=== PATIENT | male | born 1955 ===

== ENCOUNTER 2017-06-28 15:25 | Emergency (ER) | payer SELFPAY ==
[2017-06-28 15:32] VITALS: BP 123/66; PULSE 76; RESP 17; TEMP 96.5; O2SAT 98
--- NOTE | 2017-06-28 15:47 | ED PDOC ---
HPI: Chest Pain Time Seen by Provider: 06/28/17 15:30 Chief Complaint (Nursing): Chest Pain Chief Complaint (Provider): chest pain History Per: Patient (62 y/o male here with right sided chest pain x 3 days worse with deep breathing and coughing. Patient states pain worse with moving arm. 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 Denies any strenuous activity/heavy lifting.) Past Medical History Reviewed: Historical Data, Nursing Documentation, Vital Signs Vital Signs: Last Vital Signs Temp 96.5 F L 06/28/17 15:29 Pulse 76 06/28/17 15:29 Resp 17 06/28/17 15:29 BP 123/66 06/28/17 15:29 Pulse Ox 98 06/28/17 19:09 - Medical History PMH: Diabetes - Family History Family History: States: No Known Family Hx - Immunization History Hx Tetanus Toxoid Vaccination: No Hx Influenza Vaccination: No Hx Pneumococcal Vaccination: No - Home Medications Home Medications: Ambulatory Orders Medication Instructions Recorded Famotidine [Pepcid] 20 mg PO BID #30 tab 11/28/14 Ondansetron ODT [Zofran ODT] 4 mg PO Q8 PRN #12 odt 11/28/14 Penicillin V Potassium 500 mg PO Q6 #40 tablet 03/20/16 Naproxen 1 tab PO Q12 PRN #10 tab 06/28/17 - Allergies Allergies/Adverse Reactions: Allergies Allergy/AdvReac Type Severity Reaction Status Date / Time No Known Allergies Allergy Verified 11/28/14 02:56 Review of Systems ROS Statement: Except As Marked, All Systems Reviewed And Found Negative Cardiovascular: Positive for: Chest Pain Physical Exam - Reviewed Nursing Documentation Reviewed: Yes Vital Signs Reviewed: Yes - Physical Exam Appears: Positive for: Well, Non-toxic, No Acute Distress Head Exam: Positive for: ATRAUMATIC, NORMAL INSPECTION, NORMOCEPHALIC Skin: Positive for: Normal Color, Warm, DRY Eye Exam: Positive for: EOMI, Normal appearance, PERRL ENT: Positive for: Normal ENT Inspection Neck: Positive for: Normal, Painless ROM Cardiovascular/Chest: Positive for: Regular Rate, Rhythm. Negative for: Chest Non Tender (right side anterior chest wall tenderness.) Respiratory: Positive for: CNT, Normal Breath Sounds Gastrointestinal/Abdominal: Positive for: Normal Exam, Bowel Sounds, Soft Back: Positive for: Normal Inspection Extremity: Positive for: Normal ROM Neurologic/Psych: Positive for: Alert, Oriented - Laboratory Results Result Diagrams: 06/28/17 15:58 06/28/17 18:20 - ECG O2 Sat by Pulse Oximetry: 98 - Progress ED Course And Treament: toradol 15 mg iv x 1 dose ekg: nsr 65bpm no ectopy no acute changes. TROPONIN X 2 IN ED WNL K ELEVATED INITIALLY 5.3 KAYEXELATE 30 GM PO REPEAT 4.7 D/W DR. DIOP. CXR: NAD Disposition - Clinical Impression Clinical Impression: Chest wall pain - Patient ED Disposition Is Patient to be Admitted: No - Disposition Disposition: Routine/Home Disposition Time: 19:08 Condition: FAIR Prescriptions: Naproxen 1 tab PO Q12 PRN #10 tab PRN Reason: Pain, Moderate (4-7) Instructions: Chest Wall Pain (ED) Forms: [facility] (Maori)
[2017-06-28 16:12] LABS: BASO # 0.1 K/uL (0.0-0.2); BASO % 1.2 % (0.0-2.0); EOS # 0.1 K/uL (0.0-0.7); EOS % 1.1 % (0.0-4.0); HEMATOCRIT 35.1 % (35.0-51.0); LYMPH # 2.1 K/uL (1.0-4.3); LYMPH % 25.3 % (20.0-40.0); MEAN CELL VOLUME 87.3 fl (80.0-94.0); MEAN CORPUSCULAR HEMOGLOBIN 29.4 pg (27.0-31.0); MEAN CORPUSCULAR HGB CONC 33.7 g/dL (33.0-37.0); MEAN PLATELET VOLUME 7.6 fl (7.2-11.7); MONO # 0.5 K/uL (0.0-0.8); MONO % 6.3 % (0.0-10.0); NEUT # 5.6 K/uL (1.8-7.0); NEUT % 66.1 % (50.0-75.0); RED CELL DISTRIBUTION WIDTH 12.6 % (11.5-14.5); WHITE BLOOD COUNT 8.4 K/uL (4.8-10.8)
[2017-06-28 16:19] LABS: ALB/GLOB RATIO 1.4 (1.0-2.1); ALKALINE PHOSPHATASE 58 U/L (38-126); ALT/SGPT 30 U/L (21-72); AST/SGOT 21 U/L (17-59); BILIRUBIN,TOTAL 0.3 mg/dl (0.2-1.3); BLOOD UREA NITROGEN 25 mg/dl (9-20); CALCIUM 9.3 mg/dL (8.4-10.2); CARBON DIOXIDE 27 mmol/L (22-30); CHLORIDE 101 mmol/L (98-107); GFR AFRICAN-AMERICAN > 60; GLUCOSE,RANDOM 267 mg/dL (75-110); POTASSIUM 5.3 MMOL/L (3.6-5.0); SODIUM 137 mmol/l (132-148); TOTAL PROTEIN 7.5 G/DL (6.3-8.2)
[2017-06-28] MEDS ORDERED: Sod Polystyrene Sulf 15 gm/60 ml Susp PO STA (16:47)
[2017-06-28] MEDS ORDERED: Sodium Chloride 0.9% 1,000 ML IV STA (16:48)
[2017-06-28] MEDS ORDERED: Sod Polystyrene Sulf 15 gm/60 ml Susp ONE (16:56)
--- NOTE | 2017-06-28 17:19 | RAD ---
HISTORY: cp COMPARISON: Chest radiographs 11/28/2014. TECHNIQUE: Chest PA and lateral FINDINGS: LUNGS: No alveolar infiltrates appreciated bilaterally. Trace reticular markings are questioned at the left base laterally. PLEURA: No significant pleural effusion identified. No pneumothorax apparent. CARDIOVASCULAR: Normal. OSSEOUS STRUCTURES: No significant abnormalities. VISUALIZED UPPER ABDOMEN: Normal. OTHER FINDINGS: None. IMPRESSION: Nonspecific trace reticular markings are questioned the left base laterally with no additional interval findings throughout. No acute cardiovascular disease appreciable.
[2017-06-28 18:35] LABS: POTASSIUM 4.7 MMOL/L (3.6-5.0)
--- NOTE | 2017-06-29 17:44 | CARD ---
APPROVED REPORT EKG Measurement Heart [id number] CA [id number] <Conclusion> Normal sinus rhythm Normal ECG
== END 2017-06-28 19:20 | disposition home or self-care (01) ==
LOC: H.ER 15:25
DX: R07.89 Other chest pain (principal); E11.9 Type 2 diabetes mellitus without complications
CPT/HCPCS: 71020; 80053; 84132; 84484; 85025; 85378; 93005; 96374; 99283; J1885; J7040

== ENCOUNTER 2017-09-02 08:28 | Emergency (ER) | payer SELFPAY ==
[2017-09-02 08:48] VITALS: BP 149/70; PULSE 65; RESP 18; TEMP 98.1; O2SAT 100
[2017-09-02] MEDS ORDERED: Albuterol-Ipratrop 3 mg / 0.5 (3 ml) UD INH STA (09:24)
[2017-09-02 09:37] LABS: BASO % 0.8 % (0.0-2.0); EOS # 0.1 K/uL (0.0-0.7); EOS % 1.9 % (0.0-4.0); HEMOGLOBIN 13.7 g/dL (12.0-18.0); LYMPH % 34.4 % (20.0-40.0); MEAN CORPUSCULAR HEMOGLOBIN 29.3 pg (27.0-31.0); MEAN CORPUSCULAR HGB CONC 33.6 g/dL (33.0-37.0); MEAN PLATELET VOLUME 7.9 fl (7.2-11.7); MONO # 0.6 K/uL (0.0-0.8); MONO % 10.9 % (0.0-10.0); NRBC % 0.3 % (0.0-0.0); RBC 4.67 Mil/uL (4.40-5.90); RED CELL DISTRIBUTION WIDTH 12.7 % (11.5-14.5); WHITE BLOOD COUNT 5.8 K/uL (4.8-10.8)
[2017-09-02] MEDS ORDERED: Albuterol-Ipratrop 3 mg / 0.5 (3 ml) UD ONE (09:40)
--- NOTE | 2017-09-02 09:57 | ED PDOC ---
HPI: General Adult Time Seen by Provider: 09/02/17 09:08 Chief Complaint (Nursing): Flu-like Symptoms Chief Complaint (Provider): Flu-like Symptoms History Per: Patient History/Exam Limitations: no limitations Onset/Duration Of Symptoms: Days (x 2) Additional Complaint(s): Choco is a 62 year old male who presents to the emergency department sore throat, coughing and bilateral ear pain for 2 days. No chest pain or shortness of breath. PMD: Provider TBD Past Medical History Reviewed: Historical Data, Nursing Documentation, Vital Signs Vital Signs: Last Vital Signs Temp 98.1 F 09/02/17 08:47 Pulse 65 09/02/17 08:47 Resp 18 09/02/17 08:47 BP 149/70 09/02/17 08:47 Pulse Ox 100 09/02/17 18:12 - Medical History PMH: Diabetes - Surgical History Other surgeries: Right Elbow Surgery - Family History Family History: States: Unknown Family Hx - Social History Current smoker - smoking cessation education provided: No Alcohol: None Drugs: Denies - Immunization History Hx Tetanus Toxoid Vaccination: No Hx Influenza Vaccination: No Hx Pneumococcal Vaccination: No - Home Medications Home Medications: Ambulatory Orders Medication Instructions Recorded Famotidine [Pepcid] 20 mg PO BID #30 tab 11/28/14 Ondansetron ODT [Zofran ODT] 4 mg PO Q8 PRN #12 odt 11/28/14 Penicillin V Potassium 500 mg PO Q6 #40 tablet 03/20/16 Naproxen 1 tab PO Q12 PRN #10 tab 06/28/17 Albuterol HFA [Ventolin HFA 90 2 puff IH [id number] PRN #1 bottle 09/02/17 mcg/actuation (8 g)] Oseltamivir Phosphate [Tamiflu] 75 mg PO BID #9 capsule 09/02/17 - Allergies Allergies/Adverse Reactions: Allergies Allergy/AdvReac Type Severity Reaction Status Date / Time No Known Allergies Allergy Verified 11/28/14 02:56 Review of Systems ROS Statement: Except As Marked, All Systems Reviewed And Found Negative ENT: Positive for: Ear Pain (Bilateral), Throat Pain Cardiovascular: Negative for: Chest Pain Respiratory: Positive for: Cough. Negative for: Shortness of Breath Physical Exam - Reviewed Nursing Documentation Reviewed: Yes Vital Signs Reviewed: Yes - Physical Exam Appears: Positive for: Non-toxic Head Exam: Positive for: NORMAL INSPECTION Skin: Positive for: Normal Color Eye Exam: Positive for: Normal appearance ENT: Positive for: TM Is/Are (Clear bilaterally). Negative for: Pharyngeal Erythema, Tonsillar Exudate Neck: Positive for: Normal Cardiovascular/Chest: Positive for: Regular Rate, Rhythm Respiratory: Positive for: Normal Breath Sounds. Negative for: Respiratory Distress Extremity: Positive for: Normal ROM Neurologic/Psych: Positive for: Alert, Oriented - Laboratory Results Result Diagrams: 09/02/17 09:00 09/02/17 09:00 - ECG Interpretation Of ECG: NSR @ 67, no ST-T changes. O2 Sat by Pulse Oximetry: 100 (RA) Pulse Ox Interpretation: Normal Medical Decision Making Medical Decision Making: Time: 09:23 Plan: - EKG - CMP - CBC - Chest X-Ray - Duoneb 3 mg/05. mg (3 ml) UD - Peak Flow Pre/Post Treatment - Influenza A B Stat - Rapid Strep Group A Antigen Time: 10:04 Influenza A B Stat - Tested (+) for Influenza b Accession No. : [id number] Patient Name / ID : MURPHY HARDWICK / [id number] Exam Date : 09/02/2017 09:33:17 ( Approved ) Study Comment : Sex / Age : M / 62Y Creator : Claudy Chacon MD Dictator : Claudy Chacon MD Engraver Automatic : Shaper Setter : Claudy Chacon MD Approver2 : Report Date : 09/02/2017 11:31:35 My Comment : HISTORY: Cough COMPARISON: Chest radiographs 08/25/2017. TECHNIQUE: Chest PA and lateral FINDINGS: LUNGS: No active pulmonary disease. Limited is fibrotic change in left base once again laterally. PLEURA: No significant pleural effusion identified. No pneumothorax apparent. CARDIOVASCULAR: Normal. OSSEOUS STRUCTURES: No significant abnormalities. VISUALIZED UPPER ABDOMEN: Normal. OTHER FINDINGS: None. IMPRESSION: No interval acute cardiopulmonary disease appreciated. Scribe Attestation: Documented by Rian Copeland, acting as a scribe for Shanta Emanuel MD Provider Scribe Attestation: All medical record entries made by the Scribe were at my direction and personally dictated by me. I have reviewed the chart and agree that the record accurately reflects my personal performance of the history, physical exam, medical decision making, and the department course for this patient. I have also personally directed, reviewed, and agree with the discharge instructions and disposition. Disposition - Clinical Impression Clinical Impression: Influenza - Disposition Referrals: [facility] [Outside] Disposition: Routine/Home Disposition Time: 11:50 Condition: STABLE Prescriptions: Albuterol HFA [Ventolin HFA 90 mcg/actuation (8 g)] 2 puff IH [id number] PRN #1 bottle PRN Reason: Shortness Of Breath Oseltamivir Phosphate [Tamiflu] 75 mg PO BID #9 capsule Instructions: Oseltamivir (By mouth), Influenza (ED) Forms: [employer] (Martiniquais) Print Language: ESTONIAN
[2017-09-02 10:01] LABS: ALB/GLOB RATIO 1.3 (1.0-2.1); ALBUMIN 4.6 g/dL (3.5-5.0); ALT/SGPT 29 U/L (21-72); AST/SGOT 22 U/L (17-59); BLOOD UREA NITROGEN 21 mg/dl (9-20); CALCIUM 9.6 mg/dL (8.4-10.2); GFR AFRICAN-AMERICAN > 60; GFR NON-AFRICAN AMERICAN > 60
--- NOTE | 2017-09-02 11:33 | RAD ---
HISTORY: Cough COMPARISON: Chest radiographs 08/25/2017. TECHNIQUE: Chest PA and lateral FINDINGS: LUNGS: No active pulmonary disease. Limited is fibrotic change in left base once again laterally. PLEURA: No significant pleural effusion identified. No pneumothorax apparent. CARDIOVASCULAR: Normal. OSSEOUS STRUCTURES: No significant abnormalities. VISUALIZED UPPER ABDOMEN: Normal. OTHER FINDINGS: None. IMPRESSION: No interval acute cardiopulmonary disease appreciated.
--- NOTE | 2017-09-02 17:14 | CARD ---
APPROVED REPORT EKG Measurement Heart [id number] KS 138P54 [id number] <Conclusion> Normal sinus rhythm Normal ECG
== END 2017-09-02 12:15 | disposition home or self-care (01) ==
LOC: H.ER 08:28
DX: J11.1 Influenza due to unidentified influenza virus with other respiratory manifestations (principal); E11.9 Type 2 diabetes mellitus without complications

== ENCOUNTER 2018-07-29 20:33 | Emergency (ER) | payer SELFPAY ==
--- NOTE | 2018-07-29 22:53 | ED PDOC ---
HPI: Dental Pain/Injury Time Seen by Provider: 07/29/18 22:07 Chief Complaint (Nursing): Dental Pain Chief Complaint (Provider): Right ear and jaw pain x 1 week History Per: Patient History/Exam Limitations: no limitations Onset/Duration Of Symptoms: Days Current Symptoms Are (Timing): Still Present Additional Complaint(s): 63 yo male with history of DM presents for evaluation of continued left jaw and ear pain. Pt states he was seen on 07/24 by dentist and dental XR completed. Pt was told it was not due to dental issue. Pt states despite taking motrin and penicillin the pain continues. Pt states today he felt drainage from nose drip into throat and coughed it out. Pt denies fever/chills. No chest pain, no SOB. Past Medical History Reviewed: Historical Data, Nursing Documentation, Vital Signs Vital Signs: Last Vital Signs Temp 97.5 F L 07/29/18 21:58 Pulse 60 07/29/18 21:58 Resp 16 07/29/18 21:58 BP 176/75 H 07/29/18 21:58 Pulse Ox 97 07/29/18 21:58 - Medical History PMH: Diabetes, HTN - Family History Family History: States: Unknown Family Hx - Immunization History Hx Tetanus Toxoid Vaccination: No Hx Influenza Vaccination: No Hx Pneumococcal Vaccination: No - Home Medications Home Medications: Ambulatory Orders Medication Instructions Recorded Famotidine [Pepcid] 20 mg PO BID #30 tab 11/28/14 Ondansetron ODT [Zofran ODT] 4 mg PO Q8 PRN #12 odt 11/28/14 Penicillin V Potassium 500 mg PO Q6 #40 tablet 03/20/16 Naproxen 1 tab PO Q12 PRN #10 tab 06/28/17 Albuterol HFA [Ventolin HFA 90 2 puff IH [id number] PRN #1 bottle 09/02/17 mcg/actuation (8 g)] Oseltamivir Phosphate [Tamiflu] 75 mg PO BID #9 capsule 09/02/17 Amoxicillin/Clavulanate [Augmentin 1 tab PO BID #20 tab 07/29/18 875 MG-125 MG] Prednisone 50 mg PO DAILY #3 tablet 07/29/18 traMADol [Ultram] 50 mg PO Q6H PRN #10 tab 07/29/18 - Allergies Allergies/Adverse Reactions: Allergies Allergy/AdvReac Type Severity Reaction Status Date / Time No Known Allergies Allergy Verified 07/29/18 21:57 Review of Systems ROS Statement: Except As Marked, All Systems Reviewed And Found Negative Constitutional: Negative for: Fever, Chills ENT: Positive for: Ear Pain Cardiovascular: Negative for: Chest Pain, Palpitations Respiratory: Negative for: Cough, Shortness of Breath Gastrointestinal: Negative for: Nausea, Vomiting, Abdominal Pain Musculoskeletal: Negative for: Neck Pain, Shoulder Pain Physical Exam - Reviewed Nursing Documentation Reviewed: Yes Vital Signs Reviewed: Yes - Physical Exam Appears: Positive for: Well, Non-toxic, No Acute Distress Head Exam: Positive for: ATRAUMATIC, NORMAL INSPECTION, NORMOCEPHALIC Skin: Positive for: Normal Color, Warm, DRY Eye Exam: Positive for: Normal appearance ENT: Positive for: Normal ENT Inspection, Pharynx Is, TM Is/Are, Other ((+) tenderness of the right maxillary sinus ) Neck: Positive for: Normal, Painless ROM Cardiovascular/Chest: Positive for: Regular Rate, Rhythm Respiratory: Positive for: Normal Breath Sounds. Negative for: Accessory Muscle Use, Respiratory Distress Back: Positive for: Normal Inspection Extremity: Positive for: Normal ROM Neurologic/Psych: Positive for: Alert, Oriented, Gait. Negative for: Aphasia, Facial Droop - ECG O2 Sat by Pulse Oximetry: 97 Pulse Ox Interpretation: Normal Disposition - Clinical Impression Clinical Impression: Sinusitis - Patient ED Disposition Is Patient to be Admitted: No Counseled Patient/Family Regarding: Diagnosis, Need For Followup, Rx Given - Disposition Referrals: [facility] [Outside] Disposition: Routine/Home Disposition Time: 23:11 Condition: GOOD Prescriptions: Amoxicillin/Clavulanate [Augmentin 875 MG-125 MG] 1 tab PO BID #20 tab Prednisone 50 mg PO DAILY #3 tablet traMADol [Ultram] 50 mg PO Q6H PRN #10 tab PRN Reason: Pain Instructions: Sinusitis in Adults Forms: [facility] (Tunisian) Print Language: WELSH
[2018-07-29 23:20] VITALS: BP 173/64; PULSE 64; RESP 18; TEMP 97.7; O2SAT 100
== END 2018-07-29 23:22 | disposition home or self-care (01) ==
LOC: H.ER 20:33
DX: J32.9 Chronic sinusitis, unspecified (principal); E11.9 Type 2 diabetes mellitus without complications; I10 Essential (primary) hypertension

== ENCOUNTER 2018-10-25 17:58 | Emergency (ER) | payer SELFPAY ==
[2018-10-25 18:03] VITALS: TEMP 100; O2SAT 96; BMI 23.3
[2018-10-25] MEDS ORDERED: Albuterol-Ipratrop 3 mg / 0.5 (3 ml) UD INH STA (18:34)
[2018-10-25] MEDS ORDERED: Azithromycin 500 MG in Sodium Chloride 0.9% 250 ML IV STA (18:34)
[2018-10-25] MEDS ORDERED: Sodium Chloride 0.9% 1,000 ML IV STA (18:36)
--- NOTE | 2018-10-25 18:46 | ED PDOC ---
HPI: CCC, URI, Sore Throat Time Seen by Provider: 10/25/18 18:16 Chief Complaint (Nursing): Flu-like Symptoms Chief Complaint (Provider): Cough History Per: Patient History/Exam Limitations: no limitations Additional Complaint(s): Pt reports sore throat, bilateral ear pain, MIXON and cough X 5 days, took friend's Ampicillin X 2 doses. Denies CP, abdominal pain. Past Medical History Reviewed: Nursing Documentation, Vital Signs Vital Signs: Last Vital Signs Temp 100 F H 10/25/18 18:01 Pulse 120 H 10/25/18 18:01 Resp 18 10/25/18 18:01 BP 173/89 H 10/25/18 18:01 Pulse Ox 96 10/25/18 18:01 - Medical History PMH: Diabetes - Family History Family History: States: Unknown Family Hx - Social History Current smoker - smoking cessation education provided: No - Immunization History Hx Tetanus Toxoid Vaccination: No Hx Influenza Vaccination: No Hx Pneumococcal Vaccination: No - Home Medications Home Medications: Ambulatory Orders Medication Instructions Recorded Famotidine [Pepcid] 20 mg PO BID #30 tab 11/28/14 Ondansetron ODT [Zofran ODT] 4 mg PO Q8 PRN #12 odt 11/28/14 Penicillin V Potassium 500 mg PO Q6 #40 tablet 03/20/16 Naproxen 1 tab PO Q12 PRN #10 tab 06/28/17 Albuterol HFA [Ventolin HFA 90 2 puff IH [id number] PRN #1 bottle 09/02/17 mcg/actuation (8 g)] Oseltamivir Phosphate [Tamiflu] 75 mg PO BID #9 capsule 09/02/17 Amoxicillin/Clavulanate [Augmentin 1 tab PO BID #20 tab 07/29/18 875 MG-125 MG] Prednisone 50 mg PO DAILY #3 tablet 07/29/18 traMADol [Ultram] 50 mg PO Q6H PRN #10 tab 07/29/18 - Allergies Allergies/Adverse Reactions: Allergies Allergy/AdvReac Type Severity Reaction Status Date / Time No Known Allergies Allergy Verified 10/25/18 18:01 Review of Systems Constitutional: Negative for: Fever, Chills, Malaise ENT: Positive for: Ear Pain (Bilateral), Throat Pain. Negative for: Throat Swelling Cardiovascular: Negative for: Chest Pain, Palpitations Respiratory: Positive for: Cough, Sputum Gastrointestinal: Negative for: Abdominal Pain Skin: Negative for: Rash, Lesions Neurological: Positive for: Headache. Negative for: Dizziness Physical Exam - Reviewed Nursing Documentation Reviewed: Yes Vital Signs Reviewed: Yes - Physical Exam Appears: Positive for: Well, No Acute Distress Skin: Positive for: Normal Color, Warm, Dry Eye Exam: Positive for: Normal appearance, EOMI, PERRL ENT: Positive for: Pharynx Is (Clear), TM Is/Are (WNL). Negative for: Sinus Pain/Drainage, Pharyngeal Erythema, Tonsillar Exudate, Tonsillar Swelling Cardiovascular/Chest: Positive for: Tachycardia. Negative for: Irregularly Irregular Respiratory: Positive for: Normal Breath Sounds. Negative for: Rales, Rhonchi, Wheezing, Respiratory Distress Gastrointestinal/Abdominal: Positive for: Normal Exam Extremity: Positive for: Normal ROM Neurological/Psych: Positive for: Awake, Alert, Oriented - ECG O2 Sat by Pulse Oximetry: 96 Medical Decision Making Medical Decision Makin yo male with sore throat and cough. - labs - EKG - CXR - Influenza - rapid Strep - IVF - Zithromax - Albuterol/atrovent nebs Disposition - Clinical Impression Clinical Impression: Cough - Disposition Disposition: Transfer of Care Disposition Time: 19:00 Condition: STABLE Forms: [employer] (Cuban) Patient Signed Over To: Kane Green Handoff Comments: Pending labs and CXR.
[2018-10-25] MEDS ORDERED: Azithromycin 500 MG IV IVPB ONE (18:52)
[2018-10-25] MEDS ORDERED: Albuterol-Ipratrop 3 mg / 0.5 (3 ml) UD ONE (18:52)
[2018-10-25 18:58] LABS: VENOUS BLOOD GAS PCO2 43 mmHg (40-60); VENOUS BLOOD GAS PO2 31 mm/Hg (30-55); VENOUS BLOOD PH 7.38 (7.32-7.43)
[2018-10-25 19:03] LABS: BASO % 0.8 % (0.0-2.0); EOS % 0.2 % (0.0-4.0); LYMPH # 1.2 K/uL (1.0-4.3); LYMPH % 19.3 % (20.0-40.0); MEAN CELL VOLUME 86.5 fl (80.0-94.0); MEAN CORPUSCULAR HEMOGLOBIN 29.1 pg (27.0-31.0); MEAN CORPUSCULAR HGB CONC 33.7 g/dL (33.0-37.0); MEAN PLATELET VOLUME 7.9 fl (7.2-11.7); MONO # 0.5 K/uL (0.0-0.8); MONO % 8.5 % (0.0-10.0); NEUT # 4.4 K/uL (1.8-7.0); NEUT % 71.2 % (50.0-75.0); NRBC % 0.1 % (0.0-0.0); RBC 4.13 Mil/uL (4.40-5.90); RED CELL DISTRIBUTION WIDTH 13.1 % (11.5-14.5); WHITE BLOOD COUNT 6.1 K/uL (4.8-10.8)
[2018-10-25 19:20] LABS: ALB/GLOB RATIO 1.2 (1.0-2.1); ALBUMIN 4.3 g/dL (3.5-5.0); ALT/SGPT 32 U/L (21-72); AST/SGOT 41 U/L (17-59); BLOOD UREA NITROGEN 28 mg/dl (9-20); CALCIUM 9.1 mg/dL (8.4-10.2); GFR NON-AFRICAN AMERICAN > 60
[2018-10-25] MEDS ORDERED: Insulin Regular 100 units/ml IV ONE (19:20)
--- NOTE | 2018-10-25 19:21 | ED PDOC ---
- Laboratory Results Result Diagrams: 10/25/18 18:40 10/25/18 18:40 Lab Results: pO2 31 mm/Hg (30-55) 10/25/18 18:50 VBG pH 7.38 (7.32-7.43) 10/25/18 18:50 VBG pCO2 43 mmHg (40-60) 10/25/18 18:50 VBG HCO3 23.9 mmol/L 10/25/18 18:50 VBG Total CO2 26.7 mmol/L (22-28) 10/25/18 18:50 VBG O2 Sat (Calc) 64.3 % (40-65) 10/25/18 18:50 VBG Base Excess 0.0 mmol/L (0.0-2.0) 10/25/18 18:50 VBG Potassium 4.8 mmol/L (3.6-5.2) 10/25/18 18:50 Sodium 134.0 mmol/L (132-148) 10/25/18 18:50 Chloride 102.0 mmol/L (98-107) 10/25/18 18:50 Glucose 354 mg/dL (75-110) H 10/25/18 18:50 Lactate 1.4 mmol/L (0.7-2.1) 10/25/18 18:50 FiO2 21.0 % 10/25/18 18:50 Total Bilirubin 0.5 mg/dl (0.2-1.3) 10/25/18 18:40 AST 41 U/L (17-59) 10/25/18 18:40 ALT 32 U/L (21-72) 10/25/18 18:40 Alkaline Phosphatase 88 U/L (38-126) 10/25/18 18:40 Total Protein 7.9 G/DL (6.3-8.2) 10/25/18 18:40 Albumin 4.3 g/dL (3.5-5.0) 10/25/18 18:40 Globulin 3.6 gm/dL (2.2-3.9) 10/25/18 18:40 Albumin/Globulin Ratio 1.2 (1.0-2.1) 10/25/18 18:40 - ECG O2 Sat by Pulse Oximetry: 96 (RA) Pulse Ox Interpretation: Normal Medical Decision Making Medical Decision Making: Time: 1899 -- Patient endorsed to me by Dr. Green, pending labs, CXR and re-evaluation. Time: 2009 -- Labs demonstrate no clinically significant abnormalities with the exception of elevated blood glucose. Glucose level improved with medications. Patient is stable upon discharge home. HumuLINR 6 units IV Metformin 500 mg PO Scribe Attestation: Documented by Kai Simmons, acting as a scribe Melisa Green MD. Provider Scribe Attestation: All medical record entries made by the Scribe were at my direction and personally dictated by me. I have reviewed the chart and agree that the record accurately reflects my personal performance of the history, physical exam, medical decision making, and the department course for this patient. I have also personally directed, reviewed, and agree with the discharge instructions and disposition. Disposition Counseled Patient/Family Regarding: Studies Performed, Diagnosis, Need For Followup, Rx Given - Clinical Impression Clinical Impression: Upper respiratory infection - POA Present On Arrival: None - Disposition Disposition: Routine/Home Disposition Time: 20:10 Condition: STABLE Prescriptions: Albuterol HFA [Ventolin HFA 90 mcg/actuation (8 g)] 1 - 2 puff IH Q6 PRN #1 inhaler PRN Reason: Shortness Of Breath Azithromycin [Zithromax] 250 mg PO QAM #1 pkg Benzonatate [Tessalon Perle] 100 mg PO TID PRN #15 capsule PRN Reason: Cough Instructions: Acute Bronchitis Forms: [facility] (Ukrainian)
[2018-10-25] MEDS ORDERED: Insulin Regular 100 units/ml ONE (19:24)
[2018-10-25] MEDS ORDERED: guaiFENesin 200 mg/10 ml Syrup UD PO STA (22:16)
[2018-10-25] MEDS ORDERED: guaiFENesin 100 mg/5 ml Syrup UD ONE (22:33)
[2018-10-25 22:41] VITALS: BP 149/76; PULSE 85; RESP 17
--- NOTE | 2018-10-26 08:49 | RAD ---
Date of service: 10/25/2018 HISTORY: Cough COMPARISON: 09/02/2017 TECHNIQUE: Chest PA and lateral FINDINGS: LUNGS: Stable mild interstitial change and/or scarring is identified. This would include some mild bibasilar volume loss and/or subsegmental atelectasis. No definite new focal alveolar infiltrate is seen. PLEURA: No significant pleural effusion identified. No pneumothorax apparent. CARDIOVASCULAR: Minor aortic atherosclerotic calcification present. Normal cardiac size. No pulmonary vascular congestion. OSSEOUS STRUCTURES: No significant abnormalities. VISUALIZED UPPER ABDOMEN: Normal. OTHER FINDINGS: None. IMPRESSION: No focal infiltrate. Mild interstitial change and/or scarring.
--- NOTE | 2018-10-26 12:22 | CARD ---
APPROVED REPORT Date of service: 10/25/2018 EKG Measurement Heart [id number] [place] [id number] <Conclusion> Sinus tachycardia Otherwise normal ECG
== END 2018-10-25 22:45 | disposition home or self-care (01) ==
LOC: H.ER 17:58
DX: J06.9 Acute upper respiratory infection, unspecified (principal); E11.65 Type 2 diabetes mellitus with hyperglycemia
CPT/HCPCS: 71046; 80053; 82803; 82948; 85025; 87040; 87070; 87430; 87804; 93005; 94640; 96365; 96375; 99282; J0456; J7030